=== PATIENT | female | born 1945 | race Caucasian/White ===

== ENCOUNTER → 2019-10-31 | Outpatient (CLI) | payer MEDICARE, OTHER ==
[~2019-10-31] MED LIST: ATOR20 PO; BACL10 PO; CODACE30 PO; CYCL0.05OP; DULO30 PO; FENO54 PO; HYDCHL12.5 PO; METO50ER; Omeprazole20 M1; Synthroid112 MCG PO
[2019-10-31 12:26] LABS: BASOPHILS ABSOLUTE AUTO 0.04 K/mm3 (0.00-0.23); BASOPHILS PERCENT AUTO 1 % (0-2); EOSINOPHILS ABSOLUTE AUTO 0.06 K/mm3 (0.00-0.68); EOSINOPHILS PERCENT AUTO 1 % (0-6); Hematocrit 37.8 % (33.0-51.0); Hemoglobin 12.9 g/dL (11.5-16.0); IMMATURE GRAN ABSOLUTE AUTO 0.01 K/mm3 (0.00-0.10); IMMATURE GRAN PERCENT AUTO 0 % (0-1); LYMPHOCYTES ABSOLUTE AUTO 0.69 K/mm3 (0.84-5.20); LYMPHOCYTES PERCENT AUTO 15 % (21-46); MONOCYTES ABSOLUTE AUTO 0.58 K/mm3 (0.16-1.47); MONOCYTES PERCENT AUTO 13 % (4-13); Mean Corpuscular HGB 33.9 pg (26.0-34.0); Mean Corpuscular HGB Conc 34.1 g/dL (31.5-36.5); Mean Corpuscular Volume 99 fL (80-100); Mean Platelet Volume 7.7 fL (9.1-12.4); NEUTROPHILS ABSOLUTE AUTO 3.26 K/mm3 (1.96-9.15); NEUTROPHILS PERCENT AUTO 70 % (41-73); Platelet Count 241 K/mm3 (150-400); RDW Coefficient Variation 12.8 % (11.7-14.2); RDW Standard Deviation 46.3 fL (35.1-46.3); Red Blood Cell Count 3.81 M/mm3 (3.80-5.20); White Blood Cell Count 4.64 K/mm3 (4.00-11.30)
[2019-10-31 12:41] LABS: Albumin, Blood 3.7 g/dL (3.4-5.0); Albumin/Globulin Ratio 1.1 (0.8-1.8); Bilirubin, Total 0.4 mg/dL (0.1-1.0); Bun/Creatinine Ratio 14.7 (12.0-20.0); Calcium, Blood 8.7 mg/dL (8.5-10.1); Creatinine, Blood 1.09 mg/dL (0.40-1.00); Globulin, Blood 3.5 g/dL (2.2-4.0); Potassium, Blood 4.4 mmol/L (3.5-5.5); Thyroid Stimulating Hormone 0.227 uIU/mL (0.360-4.800); Total Protein, Blood 7.2 g/dL (6.4-8.2)
== END | disposition home or self-care (01) ==
LOC: LAB SHORT 12:16 → LAB EV 12:16
PROVIDERS: Physician Assistant Surgical
DX: R55 Syncope and collapse (principal); R53.83 Other fatigue
CPT/HCPCS: 80053; 84439; 84443; 84481; 85025

== ENCOUNTER 2019-11-13 11:00 | Day surgery (SDC) | payer MEDICARE, OTHER ==
[~2019-11-13] VITALS: Ht 162.6 cm; Wt 68.7 kg
[~2019-11-13 11:00] MED LIST changes: +CLON.1 PO; +HAIR SKIN NAIL1 EACH PO; +LOSA50 PO; -METO50ER; +METO50ER PO; +TIZANIDINE HCL2 MG PO; +VITAMIN D-32000 UNIT PO
--- NOTE | 2019-11-13 11:50 | NUR ---
Ambulatory in Day Surgery History, Chart, Medications and Allergies reviewed before start of procedure. Lungs clear T/O to Auscultation. Patient confirms NPO status and agrees with scheduled surgery. Patient States Post-Procedure ride home has been arranged.
--- NOTE | 2019-11-13 15:39 | NUR ---
PT AWAKE AND ORIENTED ON ARRIVAL FROM PACU. PT CIRCULATION WITH CAP REFILL LESS THAN 3 SECONDS, WARM TO TOUCH AND STAYED THE SAME T/O RECOVERY. GAVE ONE PAIN PILL. Patient up to Ambulate independently. Gait steady. Discharge instructions reviewed with patient. Patient verbalizes understanding. Copy given to patient to take home. Dressing to procedure site clean, dry, intact with no visible drainage, swelling, erythema or bruising noted. Patient States Post-Procedure ride home has been arranged. Discharged via wheelchair to private car for ride home. ALL BELONGINGS RETUNED TO APTIENT.
--- NOTE | 2019-11-14 10:49 | NUR ---
11/14/19 1049 Stacy Dubose VERIFICATIONS: EDIT CHART.
== END 2019-11-13 23:19 | disposition home or self-care (01) ==
LOC: ORSCMMR 11:00 → ORD 12:30 → ORSCMMR 23:19
PROVIDERS: Orthopaedic Surgery
PROC: 0PSL04Z Reposition Left Ulna with Internal Fixation Device, Open Approach (ICD-10-PCS; principal; 2019-11-13 12:30)
DX: S52.025A Nondisplaced fracture of olecranon process without intraarticular extension of left ulna, initial encounter for closed fracture (principal); I10 Essential (primary) hypertension; E03.9 Hypothyroidism, unspecified; F32.9 Major depressive disorder, single episode, unspecified; Z79.899 Other long term (current) drug therapy
CPT/HCPCS: C1713; J0690; J1100; J1885; J2250; J2405; J2704; J3010; J7120

== ENCOUNTER 2020-02-09 20:14 | Emergency (ER) | payer MEDICARE, OTHER ==
[~2020-02-09] VITALS: Ht 162.6 cm; Wt 67.1 kg
[2020-02-09 21:46] LABS: BASOPHILS ABSOLUTE AUTO 0.06 K/mm3 (0.00-0.23); BASOPHILS PERCENT AUTO 1 % (0-2); EOSINOPHILS ABSOLUTE AUTO 0.07 K/mm3 (0.00-0.68); EOSINOPHILS PERCENT AUTO 1 % (0-6); Hemoglobin 13.9 g/dL (11.5-16.0); IMMATURE GRAN ABSOLUTE AUTO 0.03 K/mm3 (0.00-0.10); IMMATURE GRAN PERCENT AUTO 0 % (0-1); LYMPHOCYTES ABSOLUTE AUTO 0.82 K/mm3 (0.84-5.20); LYMPHOCYTES PERCENT AUTO 10 % (21-46); MONOCYTES ABSOLUTE AUTO 0.92 K/mm3 (0.16-1.47); MONOCYTES PERCENT AUTO 11 % (4-13); Mean Corpuscular HGB 33.6 pg (26.0-34.0); Mean Corpuscular HGB Conc 33.9 g/dL (31.5-36.5); Mean Corpuscular Volume 99 fL (80-100); Mean Platelet Volume 7.9 fL (9.1-12.4); NEUTROPHILS ABSOLUTE AUTO 6.75 K/mm3 (1.96-9.15); NEUTROPHILS PERCENT AUTO 78 % (41-73); Platelet Count 285 K/mm3 (150-400); RDW Coefficient Variation 13.6 % (11.7-14.2); RDW Standard Deviation 49.6 fL (35.1-46.3); Red Blood Cell Count 4.14 M/mm3 (3.80-5.20); White Blood Cell Count 8.65 K/mm3 (4.00-11.30)
[2020-02-09 22:08] LABS: Uric Acid, Blood 4.8 mg/dL (2.6-6.0)
[2020-02-09 22:11] LABS: Albumin, Blood 3.7 g/dL (3.4-5.0); Albumin/Globulin Ratio 0.8 (0.8-1.8); Bilirubin, Total 0.6 mg/dL (0.1-1.0); Bun/Creatinine Ratio 16.5 (12.0-20.0); Calcium, Blood 9.3 mg/dL (8.5-10.1); Creatinine, Blood 1.03 mg/dL (0.40-1.00); Globulin, Blood 4.5 g/dL (2.2-4.0); Total Protein, Blood 8.2 g/dL (6.4-8.2)
[2020-02-09] MEDS ORDERED: PRED20 PO (23:32)
[2020-02-09] MEDS ORDERED: CEPH500 PO (23:32)
== END 2020-02-09 23:49 | disposition home or self-care (01) ==
LOC: ER 20:14
PROVIDERS: Physician Assistant
DX: I82.C12 Acute embolism and thrombosis of left internal jugular vein (principal); Z79.01 Long term (current) use of anticoagulants; Z88.5 Allergy status to narcotic agent; Z88.1 Allergy status to other antibiotic agents; Z91.09 Other allergy status, other than to drugs and biological substances; Z87.891 Personal history of nicotine dependence; Z79.899 Other long term (current) drug therapy
CPT/HCPCS: 80053; 84550; 85025; 93971; 99284-25; A9270-GY; J1100

== ENCOUNTER 2020-03-16 11:28 | Day surgery (SDC) | payer MEDICARE, OTHER ==
[~2020-03-16] VITALS: Ht 165.1 cm; Wt 66.3 kg
[~2020-03-16 11:28] MED LIST changes: +CEPH500 PO; +PRED20 PO
[2020-03-16] MEDS ORDERED: Micro-K8 MEQ PO (12:14)
[2020-03-16] MEDS ORDERED: FURO20 PO (12:14)
--- NOTE | 2020-03-16 12:52 | NUR ---
LOOP RECORDER IMPLANTED PER DR MOHAMUD STERILE TECHNIQUE.
--- NOTE | 2020-03-16 13:09 | NUR ---
DISCHARGE GONE OVER WITH PT, VERBALIZES UNDERSTANDING
== END 2020-03-16 23:02 | disposition home or self-care (01) ==
LOC: MHTC 11:28
DX: R55 Syncope and collapse (principal); I47.1 Supraventricular tachycardia; I10 Essential (primary) hypertension; E03.9 Hypothyroidism, unspecified; F32.9 Major depressive disorder, single episode, unspecified; Z87.891 Personal history of nicotine dependence; Z79.899 Other long term (current) drug therapy; Z88.5 Allergy status to narcotic agent; Z88.8 Allergy status to other drugs, medicaments and biological substances; F41.9 Anxiety disorder, unspecified; C50.919 Malignant neoplasm of unspecified site of unspecified female breast; I82.409 Acute embolism and thrombosis of unspecified deep veins of unspecified lower extremity; M19.90 Unspecified osteoarthritis, unspecified site; F10.20 Alcohol dependence, uncomplicated; Y90.9 Presence of alcohol in blood, level not specified; I49.1 Atrial premature depolarization
CPT/HCPCS: 33285; C1764

== ENCOUNTER 2021-05-26 10:27 | Day surgery (SDC) | payer MEDICARE, OTHER ==
[~2021-05-26] VITALS: Ht 162.6 cm; Wt 96.2 kg
[~2021-05-26 10:27] MED LIST changes: +FURO20 PO; +Micro-K8 MEQ PO
[2021-05-26] MEDS ORDERED: Amlodipine Bes2.5 MG (10:49)
[2021-05-26] MEDS ORDERED: HYDCHL25 (11:08)
--- NOTE | 2021-05-26 12:18 | NUR ---
05/26/21 1218 Sussy Benítez VITALS TAKEN EVERY 2 MINUTES THROUGHOUT THE PROCEDURE BUT THE MONITOR ONLY PRINTS EVERY 5 MINUTES AND CANNOT BE CHANGED PER BIOMED. PT STABLE.
== END 2021-05-26 12:36 | disposition home or self-care (01) ==
LOC: ORSCSDS 10:27
PROVIDERS: Surgery
PROC: 0DJD8ZZ Inspection of Lower Intestinal Tract, Via Natural or Artificial Opening Endoscopic (ICD-10-PCS; principal; 2021-05-26 11:45)
DX: Z12.11 Encounter for screening for malignant neoplasm of colon (principal); Z86.010 Personal history of colon polyps; Z80.0 Family history of malignant neoplasm of digestive organs; F41.8 Other specified anxiety disorders; I10 Essential (primary) hypertension; E78.5 Hyperlipidemia, unspecified; E03.9 Hypothyroidism, unspecified; Z87.891 Personal history of nicotine dependence; Z79.899 Other long term (current) drug therapy
CPT/HCPCS: J2704; J7120

== ENCOUNTER 2022-05-16 12:28 | Inpatient (IN) | payer MEDICARE, OTHER ==
[~2022-05-16] VITALS: Ht 157.5 cm; Wt 67.4 kg
[~2022-05-16 12:28] MED LIST changes: +Amlodipine Bes2.5 MG; +HYDCHL25; +LASIX20 M2 PO
[2022-05-16 15:20] LABS: BASOPHILS ABSOLUTE AUTO 0.05 K/mm3 (0.00-0.23); BASOPHILS PERCENT AUTO 1 % (0-2); EOSINOPHILS ABSOLUTE AUTO 0.02 K/mm3 (0.00-0.68); EOSINOPHILS PERCENT AUTO 0 % (0-6); Hematocrit 32.1 % (33.0-51.0); Hemoglobin 11.4 g/dL (11.5-16.0); IMMATURE GRAN ABSOLUTE AUTO 0.02 K/mm3 (0.00-0.10); IMMATURE GRAN PERCENT AUTO 0 % (0-1); LYMPHOCYTES ABSOLUTE AUTO 0.36 K/mm3 (0.84-5.20); LYMPHOCYTES PERCENT AUTO 6 % (21-46); MONOCYTES ABSOLUTE AUTO 0.51 K/mm3 (0.16-1.47); MONOCYTES PERCENT AUTO 9 % (4-13); Mean Corpuscular HGB 35.8 pg (26.0-34.0); Mean Corpuscular HGB Conc 35.5 g/dL (31.5-36.5); Mean Corpuscular Volume 101 fL (80-100); Mean Platelet Volume 8.7 fL (9.1-12.4); NEUTROPHILS ABSOLUTE AUTO 4.85 K/mm3 (1.96-9.15); NEUTROPHILS PERCENT AUTO 84 % (41-73); Platelet Count 280 K/mm3 (150-400); RDW Coefficient Variation 11.9 % (11.7-14.2); RDW Standard Deviation 44.3 fL (35.1-46.3); Red Blood Cell Count 3.18 M/mm3 (3.80-5.20); White Blood Cell Count 5.81 K/mm3 (4.00-11.30)
[2022-05-16 15:33] LABS: Albumin, Blood 3.4 g/dL (3.4-5.0); Albumin/Globulin Ratio 1.1 (0.8-1.8); Bilirubin, Total 1.3 mg/dL (0.1-1.0); Bun/Creatinine Ratio 16.9 (12.0-20.0); Calcium, Blood 8.8 mg/dL (8.5-10.1); Creatinine, Blood 1.18 mg/dL (0.40-1.00); Globulin, Blood 3.1 g/dL (2.2-4.0); Potassium, Blood 4.4 mmol/L (3.5-5.5); Total Protein, Blood 6.5 g/dL (6.4-8.2)
[2022-05-16 18:13] LABS: Creatine Kinase MB 2.3 ng/mL (0.0-3.6); Creatine Kinase MB Index 1.7 (0.0-4.0)
[2022-05-16] MEDS ORDERED: BUMETANIDE2 M6 (18:41)
[2022-05-16] MEDS ORDERED: TRELEGY ELLIPT1 EACH (18:44)
[2022-05-16 22:30] LABS: Source, Urine Foley catheter
[2022-05-16 22:37] LABS: Appearance, Urine Clear (Clear); Bilirubin, Urine Neg (Neg); Blood, Urine Neg (Neg); Color, Urine Yellow (P-Yellow); Glucose Qualitative, Urine 1+ (Neg); Ketones, Urine Neg (Neg); Leukocyte Esterase, Urine Neg (Neg); Nitrite, Urine Neg (Neg); Protein, Urine 1+ (Neg); Specific Gravity, Urine 1.015 (1.003-1.022); Urobilinogen, Urine NORM (Normal)
--- NOTE | 2022-05-16 23:56 | NUR ---
ADMIT NOTE; PT ARRIVED VIA ED GURNEY TO FLOOR AT 2226. PT WAS IN PAIN AT TIME OF ARRIVAL. PT TRANSFERED VIA SLIDE SHEET AT TIME OF ARRIVAL DUE TO R FEMOARAL HEAD FRACTURE. PT ARRIVED WITH NO FLUID AND ON RA. PT DENIES ANY SOB AT TIME OF ARRIVAL BUT DOES STATE 8/10 PAIN IN R HIP. PT IS AXO X4. PT LATER MEDICATED WITH FENTANYL WITH GOOD RELIEF. PT CURRENTLY RESTIG IN BED COMFORTABLY. WILL CONTINUE TO MONITOR.
[2022-05-17 06:41] LABS: Hemoglobin 9.4 g/dL (11.5-16.0); Mean Corpuscular HGB 35.7 pg (26.0-34.0); Mean Corpuscular HGB Conc 34.8 g/dL (31.5-36.5); Mean Corpuscular Volume 103 fL (80-100); Platelet Count 179 K/mm3 (150-400); RDW Standard Deviation 45.4 fL (35.1-46.3); Red Blood Cell Count 2.63 M/mm3 (3.80-5.20); White Blood Cell Count 5.93 K/mm3 (4.00-11.30)
[2022-05-17 07:18] LABS: Albumin, Blood 2.6 g/dL (3.4-5.0); Albumin/Globulin Ratio 0.9 (0.8-1.8); Bilirubin, Direct 0.3 mg/dL (0.0-0.3); Bilirubin, Indirect 0.8 mg/dL (0.1-0.7); Bilirubin, Total 1.1 mg/dL (0.1-1.0); Bun/Creatinine Ratio 15.2 (12.0-20.0); Creatinine, Blood 1.12 mg/dL (0.40-1.00); Globulin, Blood 2.9 g/dL (2.2-4.0); Total Protein, Blood 5.5 g/dL (6.4-8.2)
--- NOTE | 2022-05-17 12:54 | NUR ---
TRANSFER PT TRANSFERRED FROM [facility] FLOOR, A&OX4, VSS/RA, NPO, SURGICAL PACKET COMPLETE, ALMEIDA PATENT & DRAINING YELLOW URINE, STAT LOCK ON, OFF FLOOR, IVF INFUSING PER EMAR, PAIN 09/18. LEFT WITH [facility] RN'S TO GO TO O.R. NOW.
--- NOTE | 2022-05-17 13:10 | NUR ---
Lungs clear T/O to Auscultation. Patient confirms NPO status and agrees with scheduled surgery. PT AWAKE AND ALERT, VITALS STABLE.
--- NOTE | 2022-05-17 13:57 | NUR ---
THE PATIENT WAS BROUGHT TO DAY SURGERY FOR HER PROCEDURE.
--- NOTE | 2022-05-17 19:49 | NUR ---
SHIFT SUMMARY PT A&OX4, VSS/2LNC, NASIR PO REG DIET, ALMEIDA PATENT & DRAINING. S/P R HIP PERC SCREW FIX, 2 GAUZE/PRESSURE DRESSINGS CDI, WIGGLES TOES, REPOSITIONS SELF WELL. REPORT TO ONCOMING WILMAR RN.
--- NOTE | 2022-05-18 03:54 | NUR ---
SHIFT SUMMARY: POD 0 RIGHT HIP SCREW FIXATION PATIENT IS A&OX4. VS ARE WNL AND IS ON RA. PAIN IS MANAGED WITH PERCOCET AND ZANIFLEX. SHE IS WEIGHT BEARING TOLERATED ON THE RIGHT HIP AND HAS FOAM WITH GAUZE DRESSING THAT IS C/D/I. PATIENT WAS A SBA WITH FWW AND GAIT BELT TO THE BATHROOM AND BACK TO BED. DENIES NUMBNESS OR TINGLING. CAN MOVE FINGERS AND TOES WHEN ASKED. SHE IS TOLERATING PO INTAKE AND IS VOIDING. CALLS APPROPRIATELY. CALL LIGHT WITHIN REACH. THE PLAN IS TO WORK WITH PT/OT AND TO CONTINUE PAIN MANAGEMENT.
[2022-05-18 05:20] LABS: BASOPHILS ABSOLUTE AUTO 0.01 K/mm3 (0.00-0.23); BASOPHILS PERCENT AUTO 0 % (0-2); EOSINOPHILS PERCENT AUTO 0 % (0-6); Hemoglobin 9.8 g/dL (11.5-16.0); IMMATURE GRAN ABSOLUTE AUTO 0.02 K/mm3 (0.00-0.10); IMMATURE GRAN PERCENT AUTO 0 % (0-1); LYMPHOCYTES ABSOLUTE AUTO 0.25 K/mm3 (0.84-5.20); LYMPHOCYTES PERCENT AUTO 5 % (21-46); MONOCYTES ABSOLUTE AUTO 0.09 K/mm3 (0.16-1.47); MONOCYTES PERCENT AUTO 2 % (4-13); Mean Corpuscular HGB 35.9 pg (26.0-34.0); Mean Corpuscular Volume 103 fL (80-100); Mean Platelet Volume 8.5 fL (9.1-12.4); NEUTROPHILS PERCENT AUTO 93 % (41-73); Platelet Count 163 K/mm3 (150-400); Red Blood Cell Count 2.73 M/mm3 (3.80-5.20); White Blood Cell Count 4.97 K/mm3 (4.00-11.30)
[2022-05-18 06:01] LABS: Bun/Creatinine Ratio 17.1 (12.0-20.0); Calcium, Blood 8.5 mg/dL (8.5-10.1); Creatinine, Blood 1.05 mg/dL (0.40-1.00); Magnesium, Blood 1.8 mg/dL (1.6-2.4); Potassium, Blood 4.5 mmol/L (3.5-5.5)
--- NOTE | 2022-05-18 14:01 | NUR ---
LOOP RECORDER CHECK PER HOSPITALIST R/T RECENT FALL-HIP FRACTURE. NO EVENTS NOTED ON LOOP, LOWERED TACHY THRESHOLD ON LOOP FROM 171 BPM TO 154 BPM R/T PT AGE AND WILL MONITOR FOR SLOWER TACHY EPISODE RECORDINGS. REPORT IN [facility] ROUTED TO DR MOHAMUD FOR REVIEW. 217 RN NOTIFIED DEVICE HAS BEEN CHECKED.
--- NOTE | 2022-05-18 14:45 | NUR ---
Pt. is sitting up in a recliner and welcomes my visit. Pt. is pleasant but is unsetlled about going to any SNF as there are needs at home with her . Pt. verbalizes that she has a very good support group [place]. Faciliate a Life review, and offer pastoral encouragement. Pt. displays evidence of trust snf engagement. When Care Management arroved, I excused myself. Pt. verbalized gratitude for the spiritual care visit, and requested that this market intelligence consultant return.
--- NOTE | 2022-05-18 14:49 | NUR ---
Nurse Was Notified that this patient wasnt coming in on tele. RN Sonya Penn stated she was going to find out if this patient was going to be d/c'd or not. Patient has now been off Tele since 14:18:04.
--- NOTE | 2022-05-18 17:35 | NUR ---
PT REPORTS PAIN IS WELL CONTROLLED THROUGHOUT SHIFT. PT HAS FRIEND ARRIVING TOMORROW MORNING DURING PT AND THEN WOULD LIKE TO DISCHARGE TO HOME WITH FRIENDS TO ASSIST. PT STANDBY ASSIST WITH [place] TO BATHROOM
--- NOTE | 2022-05-18 22:15 | NUR ---
BP HOSPITALIST CALLED ABOUT PTS BP OF 162/105, 10 MG HYDRALAZINE ORDERED
--- NOTE | 2022-05-19 04:40 | NUR ---
POD2 FOR A RIGHT HIP PINNING, CIRCULATION AND SENSATION REMAINS INTACT IN RLE. DRESSING IS C/D/I. VSS, SEE PREVIOUS NOTE FOR BP MANAGEMENT. PT SLEPT WELL T/O THE NIGHT. AMBULATING AND VOIDING W/O DIFFICULTY. PASSING FLATTUS. NO N/V NOTED. PAIN CONTROLLED WITH PERCOCET. PLAN FOR PT TO WORK WITH PT/OT TODAY AND D/C HOME. THE PATIENT IS CURRENTLY RESTING, IN NO DISTRESS. CALL LIGHT IN REACH
[2022-05-19 06:38] LABS: BASOPHILS PERCENT AUTO 0 % (0-2); EOSINOPHILS ABSOLUTE AUTO 0.01 K/mm3 (0.00-0.68); EOSINOPHILS PERCENT AUTO 0 % (0-6); Hematocrit 25.4 % (33.0-51.0); Hemoglobin 8.9 g/dL (11.5-16.0); IMMATURE GRAN ABSOLUTE AUTO 0.03 K/mm3 (0.00-0.10); IMMATURE GRAN PERCENT AUTO 1 % (0-1); LYMPHOCYTES ABSOLUTE AUTO 0.34 K/mm3 (0.84-5.20); LYMPHOCYTES PERCENT AUTO 6 % (21-46); MONOCYTES ABSOLUTE AUTO 0.52 K/mm3 (0.16-1.47); MONOCYTES PERCENT AUTO 9 % (4-13); Mean Corpuscular HGB 35.9 pg (26.0-34.0); Mean Corpuscular Volume 102 fL (80-100); Mean Platelet Volume 8.7 fL (9.1-12.4); NEUTROPHILS ABSOLUTE AUTO 4.78 K/mm3 (1.96-9.15); NEUTROPHILS PERCENT AUTO 84 % (41-73); Platelet Count 190 K/mm3 (150-400); RDW Coefficient Variation 11.9 % (11.7-14.2); RDW Standard Deviation 45.1 fL (35.1-46.3); Red Blood Cell Count 2.48 M/mm3 (3.80-5.20); White Blood Cell Count 5.68 K/mm3 (4.00-11.30)
[2022-05-19 06:48] LABS: Bun/Creatinine Ratio 18.3 (12.0-20.0); Calcium, Blood 8.3 mg/dL (8.5-10.1); Creatinine, Blood 1.26 mg/dL (0.40-1.00); Potassium, Blood 4.1 mmol/L (3.5-5.5)
[2022-05-19] MEDS ORDERED: ENOX40I SC (11:05)
[2022-05-19] MEDS ORDERED: MIRALAX17 GM PO (11:06)
[2022-05-19] MEDS ORDERED: TRAM50 PO (11:06)
[2022-05-19] MEDS ORDERED: SENNA LAXATIVE8.6 MG PO (11:06)
[2022-05-19] MEDS ORDERED: Percocet 5-3251 EACH PO (11:20)
--- NOTE | 2022-05-19 13:27 | NUR ---
DOSCHARGE NOTE: PATIENT WAS EDUCATED ON DISCHARGE INSTRUCTIONS. SHE VERBALIZED UNDERSTANDING OF INSTRUCTIONS. HARD PERSCRIPTION IS WITH THE PATIENT IN HER INSTRUCTION FOLDER. IV WAS TAKEN OUT AND WNL. PAIN IS MANAGED WITH PO PAIN MEDS. HER INCISION SITE ON HER RIGHT HIP IS C/D/I. DENIES NUMBNESS AND TINGLING. SHE IS A SBA WITH FWW AND GAIT BELT. PATIENT IS DRESSED AND HAS ITEMS IN THE ROOM GATHERED. PATIENT IS BEING PUT IN THE WHEELCHAIR TO BE TAKEN OUT TO HER FRIENDS CAR TO BE TAKEN HOME.
== END 2022-05-19 13:45 | disposition home or self-care (01) | DRG 481 ==
LOC: ER 12:28 → ERHOLD 19:37 → MEDS 19:37 → SURS 19:37 → MEDS 22:22 → SURS 05-17 12:29
PROVIDERS: Internal Medicine; Orthopaedic Surgery; Physician Assistant; ADMIT Internal Medicine
PROC: 0QH634Z Insertion of Internal Fixation Device into Right Upper Femur, Percutaneous Approach (ICD-10-PCS; principal; 2022-05-17 14:00)
DX: S72.001A Fracture of unspecified part of neck of right femur, initial encounter for closed fracture (principal); E87.1 Hypo-osmolality and hyponatremia; N17.9 Acute kidney failure, unspecified; F10.239 Alcohol dependence with withdrawal, unspecified; R94.5 Abnormal results of liver function studies; E03.9 Hypothyroidism, unspecified; K21.9 Gastro-esophageal reflux disease without esophagitis; Z66 Do not resuscitate; F32.A Depression, unspecified; M54.9 Dorsalgia, unspecified; G89.29 Other chronic pain; E78.5 Hyperlipidemia, unspecified; J44.9 Chronic obstructive pulmonary disease, unspecified; I12.9 Hypertensive chronic kidney disease with stage 1 through stage 4 chronic kidney disease, or unspecified chronic kidney disease; N18.31 Chronic kidney disease, stage 3a; R74.01 Elevation of levels of liver transaminase levels; M10.9 Gout, unspecified; G62.9 Polyneuropathy, unspecified; R55 Syncope and collapse; G25.81 Restless legs syndrome; W18.30XA Fall on same level, unspecified, initial encounter; Z95.818 Presence of other cardiac implants and grafts; Z88.8 Allergy status to other drugs, medicaments and biological substances; Z88.5 Allergy status to narcotic agent; Z91.048 Other nonmedicinal substance allergy status; Z79.899 Other long term (current) drug therapy; Z79.02 Long term (current) use of antithrombotics/antiplatelets; Z79.01 Long term (current) use of anticoagulants; Z86.718 Personal history of other venous thrombosis and embolism; Z90.710 Acquired absence of both cervix and uterus; Z98.890 Other specified postprocedural states; Z90.722 Acquired absence of ovaries, bilateral; Z87.891 Personal history of nicotine dependence
CPT/HCPCS: 36415; 51702; 70450; 73502; 80048; 80053; 80076; 82550; 82553; 83735; 85025; 85027; 93005; 93010; 93291; 94640; 94664; 94760; 96374; 96375; 96376; 97110; 97116; 97162; 97165; 97530; 97535; 99285-25; A9270; C1713; C1769; J0360; J0690; J1100; J1170; J1650; J2250; J2370; J2405; J2704; J3010; J7030; J7120

== ENCOUNTER 2023-12-11 09:09 | Day surgery (SDC) | payer MEDICARE, OTHER ==
[2023-12-11] VITALS (16 sets, daily range): BP systolic 108–176; BP diastolic 78–118
[~2023-12-11] VITALS: Ht 160 cm; Wt 67.3 kg
[~2023-12-11 09:09] MED LIST changes: +BUMETANIDE2 M6; +ENOX40I SC; +HAIR, SKIN AND1 EAC3 PO; +MINO2.5 PO; +MIRALAX17 GM PO; +Percocet 5-3251 EACH PO; +SENNA LAXATIVE8.6 MG PO; +TRAM50 PO; +TRELEGY ELLIPT1 EACH; +ZINC220 PO
[2023-12-11] MEDS ORDERED: OxyCODONE HCL 10 MG TABCR PO SCH (10:10)
[2023-12-11] MEDS ORDERED: Lactated Ringer's 1,000 ML IV SCH ×2 (10:10→11:35)
[2023-12-11] MEDS ORDERED: CeFAZolin Sodium 2,000 MG in NS 100 ML IV SCH ×2 (10:10→22:00)
[2023-12-11] MEDS ORDERED: Chlorhexidine Mouth Care 15 ML UDC MT SCH (10:10)
[2023-12-11] MEDS ORDERED: Acetaminophen 500 MG Tab PO SCH ×2 (10:10→16:00)
[2023-12-11] MEDS ORDERED: Tranexamic Acid 100 ML IV SCH (10:24)
[2023-12-11] MEDS ORDERED: POTA10T PO (10:56)
--- NOTE | 2023-12-11 11:12 | NUR ---
History, Chart, Medications and Allergies reviewed before start of procedure. Patient confirms NPO status and agrees with scheduled surgery. Pre-Op teaching done. Pt verbalizes understanding. Patient reports completing Chlorhexadine shower X2 prior to admission to hospital. Lungs clear T/O to Auscultation.
[2023-12-11] MEDS ORDERED: OxyCODONE HCL 5 MG TAB PO PRN ×2 (11:30→11:45)
[2023-12-11] MEDS ORDERED: Prochlorperazine Edisylate 10 mg Vial IV PRN (11:35)
[2023-12-11] MEDS ORDERED: Promethazine HCl 25 MG Tab PO PRN (11:35)
[2023-12-11] MEDS ORDERED: Bisacodyl 10 MG Supp PR PRN (11:35)
[2023-12-11] MEDS ORDERED: DiphenhydrAMINE HCL 25 MG Cap PO PRN (11:35)
[2023-12-11] MEDS ORDERED: Magnesium Hydroxide Conc 10 ML UDC PO PRN (11:40)
[2023-12-11] MEDS ORDERED: Metoclopramide HCl 5MG / ML 2ML Vial IV PRN (11:40)
[2023-12-11] MEDS ORDERED: HYDROmorphone HCl/Pf 1MG SYR IV PRN (11:40)
[2023-12-11] MEDS ORDERED: Ondansetron HCl 2 MG / ML 2ML Vial IV PRN (11:40)
--- NOTE | 2023-12-11 12:50 | NUR ---
PT AMB TO [facility] AND BACK TO [facility] TO VOIDED PRIOR TO GOING BACK TO SURGERY.
[2023-12-11] MEDS ORDERED: FentaNYL Citrate 50 MCG/ML 2 ML Injection ONE (13:14)
[2023-12-11] MEDS ORDERED: Midazolam HCl 1MG / ML 2ML Vial ONE (13:14)
[2023-12-11] MEDS ORDERED: Ropivacaine 0.5% HCl/Pf 123.125 MG,EPINEPHrine HCL 0.25 MG,Ketorolac Tromethamine 15 MG... INFIL SCH (13:25)
[2023-12-11] MEDS ORDERED: Phenylephrine HCl 10mg/ml 1 ml Vial ONE (13:59)
--- NOTE | 2023-12-11 14:08 | NUR ---
12/11/23 1408 Day Pham SPINAL NERVE BLOCK COMPLETED BY DALTON AQUINO UPON ENTRY TO OR. PT TOLERATED WELL.
[2023-12-11] MEDS ORDERED: Dexamethasone Sod Phos 10 MG/ML 1ML VIAL ONE (14:28)
[2023-12-11] MEDS ORDERED: propofoL 20 ML IV ONE ×2 (14:40→15:05)
[2023-12-11] MEDS ORDERED: Ondansetron HCl 2 MG / ML 2ML Vial ONE (15:30)
--- NOTE | 2023-12-11 16:30 | NUR ---
ARRIVAL TO UNIT PT ARRIVED TO UNIT VIA BED FROM PACU. A&0 x4. VSS, BASELINE HTN. TOLERATING ORALS, NO N/V REPORTED. IV FLUIDS INFUSING PER EMAR. PT BLADDER SCANNED IN PACU @ 157mL, NO ACTION TAKEN. PT REPORTS PAIN TOLERABLE, POLAR PACK IN USE; S/P SPINAL. AQUACEL x2 C/D/I. ORIENTED TO ROOM, BED IN LOWEST POSITION, CALL LIGHT IN REACH.
--- NOTE | 2023-12-11 18:29 | NUR ---
SHIFT SUMMARY POD 0 R SUDARSHAN. NO ACUTE CHANGES THIS SHIFT. VSS. TOLERATING ORALS. AMBULATING USING FWW c GB & 1 PERSON ASSIST. VOIDING IND, NO BM. AQUACEL x2 C/D/I. PT REPORTS PAIN TOLERABLE, S/P SPINAL, MEDICATED PER EMAR, POLAR PACK IN USE. ANTICIPATED TO WORK WITH PHYSCIAL THERAPY IN AM & D/C HOME. CALL LIGHT IN REACH, BED IN LOWEST POSITION, WILL REPORT TO WILMAR ANTOINE.
[2023-12-11] MEDS ORDERED: MINOXIDIL 2.5MG TABLET PO SCH (21:00)
[2023-12-11] MEDS ORDERED: Losartan Potassium 50 MG Tab PO SCH (21:00)
[2023-12-11] MEDS ORDERED: Docusate Sodium 100 MG Cap PO SCH (21:00)
[2023-12-11] MEDS ORDERED: Metoprolol Succinate 50 MG TABCR PO SCH (21:00)
[2023-12-11] MEDS ORDERED: TiZANidine HCl 4 MG Tab PO SCH (21:00)
[2023-12-11] MEDS ORDERED: Apixaban 5 MG Tab PO SCH (21:00)
[2023-12-12 03:35] VITALS: BP 140/86
[2023-12-12] MEDS ORDERED: Calcium Carbonate 500 MG Tab Chew PO PRN (03:40)
[2023-12-12 04:50] LABS: BASOPHILS ABSOLUTE AUTO 0.01 K/mm3 (0.00-0.23); BASOPHILS PERCENT AUTO 0 % (0-2); EOSINOPHILS PERCENT AUTO 0 % (0-6); Hematocrit 29.2 % (33.0-51.0); Hemoglobin 10.4 g/dL (11.5-16.0); IMMATURE GRAN ABSOLUTE AUTO 0.03 K/mm3 (0.00-0.10); IMMATURE GRAN PERCENT AUTO 0 % (0-1); LYMPHOCYTES ABSOLUTE AUTO 0.27 K/mm3 (0.84-5.20); LYMPHOCYTES PERCENT AUTO 3 % (21-46); MONOCYTES ABSOLUTE AUTO 0.54 K/mm3 (0.16-1.47); MONOCYTES PERCENT AUTO 5 % (4-13); Mean Corpuscular HGB 33.1 pg (26.0-34.0); Mean Corpuscular HGB Conc 35.6 g/dL (31.5-36.5); Mean Corpuscular Volume 93 fL (80-100); Mean Platelet Volume 8.2 fL (9.1-12.4); NEUTROPHILS ABSOLUTE AUTO 9.08 K/mm3 (1.96-9.15); NEUTROPHILS PERCENT AUTO 92 % (41-73); Platelet Count 260 K/mm3 (150-400); RDW Coefficient Variation 14.4 % (11.7-14.2); RDW Standard Deviation 49.1 fL (35.1-46.3); Red Blood Cell Count 3.14 M/mm3 (3.80-5.20); White Blood Cell Count 9.93 K/mm3 (4.00-11.30)
--- NOTE | 2023-12-12 05:13 | NUR ---
SHIFT SUMMARY POD 1 R SUDARSHAN PT ABLE TO REST DURING THE NIGHT. PAIN MANAGED PER EMAR. PT HAS X2 AQUACEL DRESSING TO R HIP, C/D/I. PT ABLE TO AMB TO THE BATHROOM 1P SBA W/ FWW AND GB. PT DENIES ANY N/T TO EXT'S. PT TOLERATING PO INTAKE AND VOIDING WELL. VSS. PLAN TO WORK WITH THERAPY AND THEN D/C HOME. NO OTHER CONCERNS AT THIS TIME, CALL LIGHT WITHIN REACH
[2023-12-12 05:36] LABS: Bun/Creatinine Ratio 22.3 (12.0-20.0); Calcium, Blood 8.5 mg/dL (8.5-10.1); Creatinine, Blood 1.12 mg/dL (0.40-1.00); Potassium, Blood 4.4 mmol/L (3.5-5.5)
[2023-12-12] MEDS ORDERED: Levothyroxine Sodium 0.15 MG Tab PO SCH (06:00)
[2023-12-12] MEDS ORDERED: ELIQUIS2.5 MG PO (07:43)
[2023-12-12 07:48] VITALS: BP 124/63
[2023-12-12] MEDS ORDERED: Multivitamins 1 Tab PO SCH (09:00)
[2023-12-12] MEDS ORDERED: Cholecalciferol 1000 Unit Tablet (=25MCG) PO SCH (09:00)
[2023-12-12] MEDS ORDERED: Potassium Chloride 10 Meq Tablet SA PO SCH (09:00)
[2023-12-12] MEDS ORDERED: DULoxetine HCL 30 MG Cap DR PO SCH (09:00)
[2023-12-12] MEDS ORDERED: Zinc Sulfate 220 MG Cap (Provides 50MG) PO SCH (09:00)
--- NOTE | 2023-12-12 10:13 | NUR ---
DISCHARGE NOTE: PATIENT WAS EDUCATED ON DISCHARGE INSTRUCTIONS. SHE VERBALIZED UNDERSTANDING OF INSTRUCTIONS AND HAD NO FURTHER QUESTIONS AT THIS TIME. IV WAS TAKEN OUT AND WNL. PAIN IS MANAGED WITH PO PAIN MEDS. HER RIGHT HIP HAS X2 AQUACEL DRESSINGS THAT ARE C/D/I. SHE DENIES NUMBNESS OR TINGLING IN ALL EXTREMITIES. CAN MOVE ALL FINGERS AND TOES WHEN ASKED. SHE IS TOLERATING PO INTAKE AND IS VOIDING. SHE IS A SBA WITH FWW AND GAIT BELT. PATIENT IS DRESSED AND HAS PERSONAL ITEMS IN THE ROOM GATHERED. PATIENT STATES "MY RIDE WILL BE HERE THIS AFTERNOON SOMETIME". PATIENT IS CURRENTLY IN RECLINER CHAIR WITH LEGS ELEVATED AND CALL LIGHT IN REACH.
--- NOTE | 2023-12-12 11:20 | NUR ---
Pt. is awake in a recliner awaiting discharge when she welcomes my visit. Pt. is pleasant. Facilitated a life review and considered matters of family and community/neighborhood support. Pt. displayed evidence of being aware, and engaged. Pt. verbalized an expectation that she will ultimately need surgery on her other hip. rapport is established. Prayed with Pt. Pt. verbalized gratitude for the spiritual care visit.
[2023-12-12 14:25] VITALS: BP 136/75
--- NOTE | 2023-12-12 15:00 | NUR ---
PATIENT WAS JUST WHEELCHAIRED OUT TO HER FAMILY'S CAR TO BE TAKEN HOME. SHE HAS ALL OF HER PERSONAL BELONGINGS WITH HER.
== END 2023-12-12 15:01 | disposition home or self-care (01) ==
LOC: ORSCMMR 09:09 → ORD 11:00 → ORSCMMR 11:00 → SURS 16:22 → ORSCMMR 12-12 15:01
PROVIDERS: Orthopaedic Surgery
PROC: 0QP104Z Removal of Internal Fixation Device from Sacrum, Open Approach (ICD-10-PCS; principal; 2023-12-11 11:00)
PROC: 0SR90J9 Replacement of Right Hip Joint with Synthetic Substitute, Cemented, Open Approach (ICD-10-PCS; principal; 2023-12-11 11:00)
DX: M16.51 Unilateral post-traumatic osteoarthritis, right hip (principal); T84.84XA Pain due to internal orthopedic prosthetic devices, implants and grafts, initial encounter; I10 Essential (primary) hypertension; J45.909 Unspecified asthma, uncomplicated; E03.9 Hypothyroidism, unspecified; Z79.899 Other long term (current) drug therapy
CPT/HCPCS: 36415; 72170; 80048; 85025; 97110; 97116; 97161; 97530; A9270; C1713; C1769; C1776; J0171; J0690; J1100; J1885; J2250; J2371; J2405; J2704; J2795; J3010; J7120

== ENCOUNTER 2024-01-28 13:59 | Emergency (ER) | payer MEDICARE, OTHER ==
[~2024-01-28] VITALS: Ht 162.6 cm; Wt 69.8 kg
[~2024-01-28 13:59] MED LIST changes: +ELIQUIS2.5 MG PO; +POTA10T PO
[2024-01-28] MEDS ORDERED: Doxycycline Hyclate 100 MG TAB PO ONE (15:45)
[2024-01-28] MEDS ORDERED: Amoxicillin/Clavulanate K 875 MG Tab PO ONE (15:45)
[2024-01-28 15:46] LABS: BASOPHILS ABSOLUTE AUTO 0.05 K/mm3 (0.00-0.23); BASOPHILS PERCENT AUTO 1 % (0-2); EOSINOPHILS ABSOLUTE AUTO 0.12 K/mm3 (0.00-0.68); EOSINOPHILS PERCENT AUTO 2 % (0-6); Hematocrit 31.2 % (33.0-51.0); Hemoglobin 10.1 g/dL (11.5-16.0); IMMATURE GRAN ABSOLUTE AUTO 0.02 K/mm3 (0.00-0.10); IMMATURE GRAN PERCENT AUTO 0 % (0-1); LYMPHOCYTES ABSOLUTE AUTO 0.46 K/mm3 (0.84-5.20); LYMPHOCYTES PERCENT AUTO 8 % (21-46); MONOCYTES ABSOLUTE AUTO 0.46 K/mm3 (0.16-1.47); MONOCYTES PERCENT AUTO 8 % (4-13); Mean Corpuscular HGB Conc 32.4 g/dL (31.5-36.5); Mean Corpuscular Volume 90 fL (80-100); Mean Platelet Volume 7.5 fL (9.1-12.4); NEUTROPHILS ABSOLUTE AUTO 4.72 K/mm3 (1.96-9.15); NEUTROPHILS PERCENT AUTO 81 % (41-73); Platelet Count 422 K/mm3 (150-400); RDW Coefficient Variation 13.7 % (11.7-14.2); RDW Standard Deviation 45.1 fL (35.1-46.3); Red Blood Cell Count 3.48 M/mm3 (3.80-5.20); White Blood Cell Count 5.83 K/mm3 (4.00-11.30)
[2024-01-28 15:55] LABS: Bun/Creatinine Ratio 14.7 (12.0-20.0); Calcium, Blood 8.9 mg/dL (8.5-10.1); Creatinine, Blood 1.02 mg/dL (0.40-1.00); Potassium, Blood 3.5 mmol/L (3.5-5.5)
[2024-01-28 16:51] VITALS: BP 132/84
[2024-01-28] MEDS ORDERED: DOXY100 PO (16:58)
[2024-01-28] MEDS ORDERED: AMOCLA875 PO (16:58)
== END 2024-01-28 17:30 | disposition home or self-care (01) ==
LOC: ER 13:59
PROVIDERS: Emergency Medicine
DX: J18.9 Pneumonia, unspecified organism (principal); D64.9 Anemia, unspecified; J44.9 Chronic obstructive pulmonary disease, unspecified; R05.3 Chronic cough; R06.09 Other forms of dyspnea; Z79.899 Other long term (current) drug therapy; Z79.890 Hormone replacement therapy; Z79.01 Long term (current) use of anticoagulants; Z87.891 Personal history of nicotine dependence; Z88.5 Allergy status to narcotic agent; Z88.8 Allergy status to other drugs, medicaments and biological substances; Z91.048 Other nonmedicinal substance allergy status
CPT/HCPCS: 36415; 71260; 80048; 80053; 82728; 83540; 83550; 83880; 84484; 85025; 85379; 93005; 93010; 99285-25; A9270; Q9967

== ENCOUNTER 2024-04-07 07:56 | Day surgery (SDC) | payer MEDICARE, OTHER ==
[~2024-04-07] VITALS: Ht 162.6 cm; Wt 68.0 kg
[~2024-04-07 07:56] MED LIST changes: +AMOCLA875 PO; +DOXY100 PO; -VITAMIN D-32000 UNIT PO; +Vitamin D1000 UNI1 PO
[2024-04-07] MEDS ORDERED: Lidocaine 2%-Epineph 1:100000 20 ML MDV ONE (08:37)
[2024-04-07 09:13] VITALS: BP 154/80
[2024-04-07 09:15] VITALS: BP 154/80
[2024-04-07 10:18] VITALS: BP 153/104
--- NOTE | 2024-04-07 10:24 | NUR ---
PATIENT TOLERATED LEFT CHEST LOOP EXPLANT RECORDER WELL. LIDOCAINE USED, NO SEDATION REQUIRED. VSS ON RA. VERBAL DISCHARGE INSTRUCTIONS GIVEN. ALL QUESTIONS ANSWERED. PATIENT AMBULATING WITHOUT DIFFICULTY.
== END 2024-04-07 10:35 | disposition home or self-care (01) ==
LOC: MHTC 07:56
DX: Z45.09 Encounter for adjustment and management of other cardiac device (principal); I11.0 Hypertensive heart disease with heart failure; I50.30 Unspecified diastolic (congestive) heart failure; I47.10 Supraventricular tachycardia, unspecified; I70.0 Atherosclerosis of aorta; E78.5 Hyperlipidemia, unspecified; E03.9 Hypothyroidism, unspecified; F32.9 Major depressive disorder, single episode, unspecified; G62.9 Polyneuropathy, unspecified; Z88.5 Allergy status to narcotic agent; Z88.8 Allergy status to other drugs, medicaments and biological substances; Z87.891 Personal history of nicotine dependence
CPT/HCPCS: 33286

== ENCOUNTER 2024-08-07 18:14 | Emergency (ER) | payer OTHER, MEDICARE ==
[~2024-08-07] VITALS: Ht 160 cm; Wt 65.8 kg
[2024-08-07 21:30] VITALS: BP 176/91
== END 2024-08-07 21:30 | disposition home or self-care (01) ==
LOC: ER 18:14
DX: S01.511A Laceration without foreign body of lip, initial encounter (principal); S60.212A Contusion of left wrist, initial encounter; Z87.891 Personal history of nicotine dependence; Z88.5 Allergy status to narcotic agent; Z88.6 Allergy status to analgesic agent; Z88.1 Allergy status to other antibiotic agents; Z91.048 Other nonmedicinal substance allergy status; Z88.8 Allergy status to other drugs, medicaments and biological substances; Z79.890 Hormone replacement therapy; Z79.899 Other long term (current) drug therapy; W01.0XXA Fall on same level from slipping, tripping and stumbling without subsequent striking against object, initial encounter
CPT/HCPCS: 12051; 29125; 70450; 70486; 71045; 72125; 73110; 73130; 99284-25; L3917